=== PATIENT | male | born 1950 | race Caucasian/White ===

== ENCOUNTER 2017-10-07 13:46 | Emergency (ER) | payer OTHER ==
[~2017-10-07] VITALS: Ht 175 cm; Wt 78.9 kg
[2017-10-07 13:50] VITALS: BP 170/100
--- NOTE | 2017-10-07 13:56 | ED SKIN/ALLERGY COMPLAINT ---
History of Present Illness General Chief Complaint: Animal/Insect Bite Stated Complaint: TICK BITE Source: patient, old records Exam Limitations: no limitations Vital Signs & Intake/Output Vital Signs & Intake/Output Vital Signs Date Time Temp Pulse Resp B/P B/P Pulse O2 O2 Flow FiO2 Mean Ox Delivery Rate 10/07 1350 97.2 70 18 170/100 97 Room Air Room Air Allergies Coded Allergies: No Known Allergies (10/07/17) Triage Note: TRIAGE: 67 Y/O MALE PRESENTS C/O TICK BITE TO LEFT UPPER THIGH. NOTICED 30 MINUTES PRIOR TO ARRIVAL. TRIED TO REMOVE TICK AT HOME. Triage Nurses Notes Reviewed? yes Onset: Abrupt Duration: minute(s): (30), constant Timing: single episode today Severity: mild Severity Numbers: 1 Location: extremities Possible Factors: insect bite No Modifying Factors: none Associated Symptoms: DENIES HPI: 67-year-old male presents to ER for evaluation after he states he was bit by a tick which is still embedded in [place] left [place] He denies any other injury he attempted to get out home without success. There is no pain he denies rash fever chills. No modifying factors. (Tom Diamond) Past History Travel History Traveled to [place] past 21 day No Medical History Any Pertinent Medical History? none Neurological: NONE EENT: NONE Cardiovascular: NONE Respiratory: NONE Gastrointestinal: NONE Hepatic: NONE Renal: NONE Musculoskeletal: NONE Psychiatric: NONE Endocrine: NONE Blood Disorders: NONE Cancer(s): NONE BIT WELDER/Reproductive: NONE Surgical History Surgical History: none Psychosocial History What is your primary language Gabonese Tobacco Use: Quit >30 days ago ETOH Use: occasional use Illicit Drug Use: denies illicit drug use Family History Hx Contributory? No (Tom Diamond) Review of Systems Review of Systems Constitutional: Reports: see HPI. Comments Review of systems: See HPI, All other systems negative. Constitutional, no chills no fever HEENT: no sore throat no congestion Cardiovascular: No chest pain Skin: no rashes, no change in skin Respiratory: no cough Muscle skeletal: No joint pain, no back pain, no neck pain, Neurologic: , no headache Heme/endocrine: No bruising (Tom Diamond) Physical Exam Physical Exam General Appearance: well developed/nourished, no apparent distress, alert, awake , comfortable Comments: Well-developed well-nourished patient in no apparent distress. HEENT: Atraumatic, extraocular motion intact Neck: Supple, FROM Back: FROM Respiratory: No respiratory distress. Patient speaking in full complete sentences. Extremities: full range of motion Neuro: awake, alert, and oriented to person, place and time. There were no obvious focal neurologic abnormalities. Skin: Warm & dry; small non-engorged tick noted to the left medial thigh no surrounding erythema or ecchymosis Psych: Mood affect normal, normal memory normal judgment. (Tom Diamond) Progress Differential Diagnosis: TICK BITE, CELLULITIS Plan of Care: Current Medications Sig/Tru Start time Last Medication Dose Stop Time Status Admin Doxycycline Hyclate 200 MG ONCE ONE 10/07 1414 UNVr (Vibramycin) 10/08 1415 The tick was removed in its entirety by myself. He was medicated doxycycline 200 g by mouth. Discussed with patient return precautions signs of infection things for he'll follow-up with his primary care physician he feels comfortable with plan. (Tom Diamond) Departure Departure Time of Disposition: 1405 Disposition: HOME OR SELF CARE Condition: Stable Clinical Impression Primary Impression: Tick bite Referrals: Mary HERNANDEZ,Lorenzo Bautista. Additional Instructions: You have been treated prophylactically with antibiotics for your tick bite. Follow up with your pmd as discussed in 4-6 weeks for blood tests. observe for signs of infection: if you develop rash, fever, chills or any other concerns return to the er. Departure Forms: Customer Survey General Discharge Information (Tom Diamond) PA/EQUIPMENT SUPERINTENDENT Co-Sign Statement Statement: ED Attending supervision documentation- [] I saw and evaluated the patient. I have also reviewed all the pertinent lab results and diagnostic results. I agree with the findings and the plan of care as documented in the PA's/EQUIPMENT SUPERINTENDENT's documentation. [X] I have reviewed the ED Record and agree with the PA's/EQUIPMENT SUPERINTENDENT's documentation. [] Additions or exceptions (if any) to the PAs/EQUIPMENT SUPERINTENDENT's note and plan are summarized below: [] (Марина HERNANDEZ,Geovanni Barrios)
== END 2017-10-07 14:17 ==
LOC: ERH 13:46
DX: S70.362A Insect bite (nonvenomous), left thigh, initial encounter (principal); W57.XXXA Bitten or stung by nonvenomous insect and other nonvenomous arthropods, initial encounter; Y92.830 Public park as the place of occurrence of the external cause; Y93.9 Activity, unspecified